=== PATIENT | male | born 1980 | race Caucasian/White ===

== ENCOUNTER 2022-07-05 18:51 | Emergency (ER) | payer BC ==
[2022-07-05 20:07] LABS: CORONAVIRUS COVID-19 NAA NEGATIVE (NEGATIVE); INFLUENZA A NAA POSITIVE (NEGATIVE); INFLUENZA B NAA NEGATIVE (NEGATIVE)
[2022-07-05] MEDS ORDERED: Ketorolac 60 MG/2 ML SDV IM ONE (20:28)
== END 2022-07-05 20:57 | disposition home or self-care (01) ==
LOC: MW.ED 18:51
DX: J10.1 Influenza due to other identified influenza virus with other respiratory manifestations (principal); Z88.5 Allergy status to narcotic agent; Z20.822 Contact with and (suspected) exposure to COVID-19
CPT/HCPCS: 0240U; 96372; 99284; J1885